=== PATIENT | female | born 1990 | race Caucasian/White ===

== ENCOUNTER 2017-01-10 20:14 | Emergency (ER) | payer SELFPAY ==
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
[2017-01-10] MEDS: KETOROLAC TROMETHAMINE 30 MG/1ML VIAL IM ONE (21:07)
[2017-01-10 21:14] VITALS: BP 112/74
== END 2017-01-10 21:12 | disposition home or self-care (01) ==
LOC: ED 20:14
DX: S29.012A Strain of muscle and tendon of back wall of thorax, initial encounter (principal); Y32.XXXA Crashing of motor vehicle, undetermined intent, initial encounter; Y93.9 Activity, unspecified; Y99.9 Unspecified external cause status
CPT/HCPCS: 99283; J1885

== ENCOUNTER 2017-04-02 18:05 | Emergency (ER) | payer SELFPAY ==
--- NOTE | 2017-04-02 18:20 | ED Physician Documentation ---
Nausea/Vomiting/Diarrhea - HISTORIAN Historian: patient - HPI Chief Complaint: Nausea,Vomiting,Diarrhea Additional Information: Patient states that she started to have some nausea and vomiting this AM. No blood noted. Has had some burning sensation in the abd. Has felt feverish, no chills noted. No other family members sick. Onset: hours (11:00ths am) Duration: waxing, waning Last known Well Code/Unknown Code: Unknown Timing: gradual onset, still present Context: denies: out of country travel, bad food Severity: moderate - Associated Symptoms Vomiting: mild (4 times today). denies: bloody, blood-streaked Diarrhea: other (none last BM this am and normal) Abdominal Pain: cramping - ROS CONST: fever, sweating - PAST HX Past History: other (gestation HTN) Surgeries/Procedures: other (I&D) Immunizations: referred to PCP. denies: influenza Allergies/Adverse Reactions: Allergies Allergy/AdvReac Type Severity Reaction Status Date / Time No Known Allergies Allergy Verified 04/02/17 18:20 Home Medications: Ambulatory Orders Medication Instructions Recorded Ondansetron HCl Rapdis [Zofran Odt] 4 mg PO Q6 PRN #10 tab 04/02/17 - SOCIAL HX Smoking History: non-smoker Alcohol Use: rarely Drug Use: none - FAMILY HX Family History: other (COPD, cancer) - VITAL SIGNS Vital Signs: Vital Signs Temp Pulse Resp BP Pulse Ox 98.7 F 76 16 122/72 98 04/02/17 18:05 04/02/17 18:05 04/02/17 18:05 04/02/17 18:05 04/02/17 18:05 - REVIEWED ASSESSMENTS Nursing Assessment Reviewed: Yes Vitals Reviewed: Yes ED Results Lab/Radiology - Lab Results Lab Results: Lab Results 04/02/17 04/02/17 18:49 18:49 WBC 9.60 K/ul K/ul (4.00-12.00) RBC 4.78 M/ul M/ul (3.90-5.20) Hgb 14.3 g/dL g/dL (12.0-16.0) Hct 41.9 % % (34.5-46.5) MCV 87.7 fl fl (80.0-100.0) MCH 29.9 pg pg (28.0-34.0) MCHC 34.0 g/dL g/dL (30.0-36.0) RDW 12.9 % % (11.3-14.3) Plt Count 331 K/mm3 K/mm3 (130-400) Neut % (Auto) 59.6 % % (39.0-79.0) Lymph % (Auto) 30.0 % % (16.0-50.0) [place] % (Auto) 4.3 % % (0.0-11.0) Eos % (Auto) 4.0 % % (0.0-6.8) Baso % (Auto) 0.7 (0.0-1.5) Neut # (Auto) 5.7 # k/uL # k/uL (1.4-7.7) Lymph # (Auto) 2.9 # k/uL # k/uL (0.6-4.0) [place] # (Auto) 0.4 # k/uL # k/uL (0.0-0.9) Eos # (Auto) 0.4 # k/uL # k/uL (0.0-0.6) Baso # (Auto) 0.1 # k/uL # k/uL (0.0-0.5) Reactive Lymphs % 1.4 % % (0.0-5.0) Reactive Lymphs # 0.1 # k/uL # k/uL (0.0-0.8) Sodium 138 mmol/L mmol/L (137-145) Potassium 3.6 mmol/L mmol/L (3.5-5.1) Chloride 102 mmol/L mmol/L (98-107) Carbon Dioxide 27 mmol/L mmol/L (22-30) BUN 12 mg/dL mg/dL (7-17) Creatinine 0.70 mg/dL mg/dL (0.52-1.04) Estimated Creat Clear 223 Est GFR ( Amer) > 60 (60 - ) Est GFR (Non-Af Amer) > 60 (60 - ) Glucose 78 mg/dL mg/dL (74-106) Calcium 8.6 mg/dL mg/dL (8.4-10.2) Total Bilirubin 0.3 mg/dL mg/dL (0.2-1.3) AST 18 U/L U/L (15-46) ALT 30 U/L U/L (13-69) Alkaline Phosphatase 53 U/L U/L (38-126) Total Protein 7.4 g/dL g/dL (6.3-8.2) Albumin 3.9 g/dL g/dL (3.5-5.0) - Orders Orders: ED Orders Category Date Time Status Place IV Lock 1T Care 04/02/17 18:27 Active CBC/PLATELET/DIFF Routine Lab 04/02/17 18:49 Completed CMP Routine Lab 04/02/17 18:49 Completed 0.9 % Sodium Chloride [Normal Saline] 500 ml Med 04/02/17 18:30 Ordered IV .Q1H 0.9 % Sodium Chloride [Normal Saline] 500 ml Med 04/02/17 18:37 Discontinued IV .STK-MED Ondansetron HCl/Pf [Zofran 4 mg/2 ml] Med 04/02/17 18:27 Discontinued 4 mg IVP NOW ONE Nausea Physical Exam - EXAM General Appearance: alert, mild distress EENT: eye inspection normal, ENT inspection normal, pharynx normal Neck: normal inspection, thyroid normal, supple. No: lymphadenopathy, stiff neck Respiratory: no resp distress, chest non-tender, breath sounds normal. No: wheezes, rales, rhonchi CVS: reg rate & rhythm, heart sounds normal, equal pulses, no murmur, no gallop Abdomen: tenderness (mild diffuse tenderness, no guarding or rebound tenderness) . No: guarding, rebound, mass Back: non-tender, painless ROM Skin: warm/dry, normal color Extremities: non-tender, normal range of motion, no edema Neuro/Psych: oriented X3, mood/affect nml, cognition normal Discharge Clincal Impression: Viral gastroenteritis Prescriptions: Ondansetron HCl Rapdis [Zofran Odt] 4 mg PO Q6 PRN #10 tab PRN Reason: Nausea / Vomiting Referrals: Primary Doctor,No [Primary Care Provider] - 2 Days Comments: Stay on clear liquids for the next 12-24 hours. Take Zofran as needed for nausea. Monitor your urinary output. If you still are having problems by Tuesday return to the ED or see your primary care provider. Return sooner if needed. Condition: Stable Disposition: 01 HOME, SELF-CARE Decision to Admit: NO Date of Decison to Admit: 04/02/17 Decision Time: 18:49
[2017-04-02] MEDS ORDERED: ONDANSETRON HCL/PF 4 MG/ 2ML VIAL IVP ONE (18:27)
[2017-04-02] MEDS ORDERED: 0.9 % SODIUM CHLORIDE 500 ML IV SCH (18:30)
[2017-04-02] MEDS ORDERED: 0.9 % SODIUM CHLORIDE 500 ML IV ONE (18:37)
[2017-04-02 18:54] LABS: BASOPHILS % 0.7 (0.0-1.5); MEAN CORPUSCULAR HEMOGLOBIN 29.9 pg (28.0-34.0); MEAN CORPUSCULAR VOLUME 87.7 fl (80.0-100.0); MONOCYTES % 4.3 % (0.0-11.0); NEUTROPHILS # 5.7 # k/uL (1.4-7.7)
[2017-04-02 19:08] LABS: eGFR (African) > 60; eGFR (Non-African) > 60
[2017-04-02 20:35] VITALS: BP 119/68
== END 2017-04-02 19:29 | disposition home or self-care (01) ==
LOC: ED 18:05
DX: A08.4 Viral intestinal infection, unspecified (principal)
CPT/HCPCS: 80053; 85025; J2405; J7030; J7060; 96361; 96374; 99283; S1016

== ENCOUNTER 2017-06-07 10:46 | Emergency (ER) | payer SELFPAY ==
--- NOTE | 2017-06-07 11:06 | ED Physician Documentation ---
Abdominal Pain - HISTORIAN Historian: patient - HPI Chief Complaint: Abdominal Pain Onset: hours (this AM) Duration: waxing, waning Timing: better Context: denies: out of country travel, bad food, recent trauma Severity: moderate Quality: sharp, stabbing Associated Symptoms: denies: fever, chills, nausea, vomiting Exacerbated by: movements. denies: cough, food, walking Relieved by: nothing - ROS CONST: no problems GI/: denies: constipation - SOCIAL HX Smoking History: non-smoker Alcohol Use: none Drug Use: none - FAMILY HX Family History: no significant history - PAST HX Past History: none Ischemic Bowel Risk Factors: none Other History: none Surgeries/Procedures: none Home Medications: Ambulatory Orders Medication Instructions Recorded NK [NK] 06/07/17 Allergies/Adverse Reactions: Allergies Allergy/AdvReac Type Severity Reaction Status Date / Time No Known Allergies Allergy Verified 06/07/17 11:20 - VITAL SIGNS Vital Signs: Vital Signs Temp Pulse Resp BP Pulse Ox 98.2 F 68 20 113/75 97 06/07/17 10:46 06/07/17 12:57 06/07/17 12:57 06/07/17 12:57 06/07/17 12:57 - REVIEWED ASSESSMENTS Nursing Assessment Reviewed: Yes Vitals Reviewed: Yes ED Results Lab/Radiology - Lab Results Lab Results: Lab Results 06/07/17 06/07/17 06/07/17 11:33 11:15 11:15 WBC RBC Hgb Hct MCV MCH MCHC RDW Plt Count Neut % (Auto) Lymph % (Auto) [place] % (Auto) Eos % (Auto) Baso % (Auto) Neut # (Auto) Lymph # (Auto) [place] # (Auto) Eos # (Auto) Baso # (Auto) Reactive Lymphs % Reactive Lymphs # Sodium 140 mmol/L mmol/L (136-145) Potassium 3.5 mmol/L mmol/L (3.5-5.1) Chloride 102 mmol/L mmol/L (98-107) Carbon Dioxide 29 mmol/L mmol/L (22-30) BUN 14 mg/dL mg/dL (7-17) Creatinine 0.60 mg/dL mg/dL (0.52-1.04) Estimated Creat Clear 262 Est GFR ( Amer) > 60 (60 - ) Est GFR (Non-Af Amer) > 60 (60 - ) Glucose 84 mg/dL mg/dL (74-106) Calcium 8.9 mg/dL mg/dL (8.4-10.2) Total Bilirubin 0.4 mg/dL mg/dL (0.2-1.3) AST 22 U/L U/L (15-46) ALT 35 U/L U/L (13-69) Alkaline Phosphatase 52 U/L U/L (38-126) Total Protein 7.0 g/dL g/dL (6.3-8.2) Albumin 3.7 g/dL g/dL (3.5-5.0) Lipase 160 U/L U/L (23-300) Urine Color Yellow (YELLOW) Urine Appearance Clear (CLEAR) Urine pH 6.5 (5.0 - 8.0) Ur Specific [place] 1.020 (1.010-1.030) Urine Protein Negative mg/dL mg/dL (NEGATIVE) Urine Ketones Negative mg/dL mg/dL (NEGATIVE) Urine Occult Blood Negative (NEGATIVE) Urine Nitrite Negative (NEGATIVE) Urine Bilirubin Negative (NEGATIVE) Urine Urobilinogen 1.0 Eu Eu (0.2-1.0) Ur Leukocyte Esterase Negative (NEGATIVE) Urine Glucose Negative mg/dL mg/dL (NEGATIVE) 06/07/17 11:15 WBC 7.20 K/ul K/ul (4.00-12.00) RBC 4.30 M/ul M/ul (3.90-5.20) Hgb 13.3 g/dL g/dL (12.0-16.0) Hct 37.8 % % (34.5-46.5) MCV 87.9 fl fl (80.0-100.0) MCH 31.0 pg pg (28.0-34.0) MCHC 35.3 g/dL g/dL (30.0-36.0) RDW 12.8 % % (11.3-14.3) Plt Count 363 K/mm3 K/mm3 (130-400) Neut % (Auto) 58.6 % % (39.0-79.0) Lymph % (Auto) 31.2 % % (16.0-50.0) [place] % (Auto) 4.6 % % (0.0-11.0) Eos % (Auto) 3.5 % % (0.0-6.8) Baso % (Auto) 0.7 (0.0-1.5) Neut # (Auto) 4.2 # k/uL # k/uL (1.4-7.7) Lymph # (Auto) 2.2 # k/uL # k/uL (0.6-4.0) [place] # (Auto) 0.3 # k/uL # k/uL (0.0-0.9) Eos # (Auto) 0.2 # k/uL # k/uL (0.0-0.6) Baso # (Auto) 0.0 # k/uL # k/uL (0.0-0.5) Reactive Lymphs % 1.3 % % (0.0-5.0) Reactive Lymphs # 0.1 # k/uL # k/uL (0.0-0.8) Sodium Potassium Chloride Carbon Dioxide BUN Creatinine Estimated Creat Clear Est GFR ( Amer) Est GFR (Non-Af Amer) Glucose Calcium Total Bilirubin AST ALT Alkaline Phosphatase Total Protein Albumin Lipase Urine Color Urine Appearance Urine pH Ur Specific [place] Urine Protein Urine Ketones Urine Occult Blood Urine Nitrite Urine Bilirubin Urine Urobilinogen Ur Leukocyte Esterase Urine Glucose - Radiology Radiology Impressions: Examination: Obstruction series History: Abdominal discomfort Findings: 4 views obtained of the chest and abdomen. Single view the chest demonstrates normal cardiac silhouette. No focal infiltrate. No blunting of the costophrenic margins. No abnormal dilation of the large or small bowel. Air and stool throughout the large bowel. No suspicious calcification projecting over the renal fossa or the lower pelvic region. Osseous structures are appropriate for age. IUD in place. Impression: No acute cardiopulmonary process. No obstruction. No suspicious calcifications by plain film sensitivity. - Orders Orders: ED Orders Category Date Time Status ABD SERIES PA CHEST [RAD] Stat Exams 06/07/17 Completed CBC/PLATELET/DIFF Routine Lab 06/07/17 11:15 Completed CMP Routine Lab 06/07/17 11:15 Completed LIPASE Urgent Lab 06/07/17 11:15 Completed UA MACRO DIP ONLY Routine Lab 06/07/17 11:33 Completed Lidocaine 2%Visc 15ml [Xylocaine] Med 06/07/17 11:24 Discontinued 600 mg .ROUTE .STK-MED ONE Mag Hydrox/Al Hydrox/Simeth [Mylanta] Med 06/07/17 11:24 Discontinued 30 ml PO .STK-MED ONE Mag Hydrox/Al Hydrox/Simeth [Mylanta] 30 ml Med 06/07/17 11:16 Discontinued Lidocaine 2%Visc 15ml [Xylocaine] 20 mg PHENobarb/HYOSCY/ATROPINE/SCOP [] 10 ml PO NOW Abdominal Pain Physical Exam - Physical Exam General Appearance: alert, mild distress EENT: eye inspection normal, ENT inspection normal, pharynx normal, no signs of dehydration NECK: normal inspection, supple. No: lymphadenopathy, stiff neck RESPIRATORY: no resp distress, chest non-tender, breath sounds normal. No: wheezes, rales, rhonchi CVS: reg rate & rhythm, heart sounds normal, equal pulses, no murmur, no gallop ABDOMEN: soft, no organomegaly, normal bowel sounds, no abdominal bruit, no distension, non-tender, tenderness (diffuse tenderness) BACK: normal inspection, no CVA tenderness SKIN: warm/dry, normal color EXTREMITIES: non-tender, normal range of motion NEURO: oriented X3, CN's nml as tested, cognition normal Vital Signs: Vital Signs Temp Pulse Resp BP Pulse Ox 98.2 F 68 20 113/75 97 06/07/17 10:46 06/07/17 12:57 06/07/17 12:57 06/07/17 12:57 06/07/17 12:57 Discharge Clincal Impression: Abdominal pain Qualifiers: Abdominal location: generalized Qualified Code(s): R10.84 - Generalized abdominal pain Referrals: Primary Doctor,No [Primary Care Provider] - 2 Days Additional Instructions: Home and rest. Drink clear liquids for the next 12 hours. If you continue to have some pain to follow-up with your primary care provider or return to the ED. Condition: Stable Disposition: HOME, SELF-CARE Decision to Admit: NO Date of Decison to Admit: 06/07/17 Decision Time: 12:41
[2017-06-07] MEDS ORDERED: MAG HYDROX/AL HYDROX/SIMETH 30 ML, Lidocaine 2%Visc 15ml 20 MG, PHENobarb/HYOSCY/ATROPI... PO ONE ×3 (11:16)
[2017-06-07] MEDS ORDERED: MAG HYDROX/AL HYDROX/SIMETH 30 ML UDC PO ONE (11:24)
[2017-06-07] MEDS ORDERED: Lidocaine 2%Visc 15ml 20 MG/ML UDC ONE (11:24)
[2017-06-07 11:27] LABS: BASOPHILS % 0.7 (0.0-1.5); EOSINOPHILS % 3.5 % (0.0-6.8); MEAN CORPUSCULAR VOLUME 87.9 fl (80.0-100.0); MONOCYTES % 4.6 % (0.0-11.0); NEUTROPHILS # 4.2 # k/uL (1.4-7.7)
[2017-06-07 11:39] LABS: eGFR (African) > 60; eGFR (Non-African) > 60
--- NOTE | 2017-06-07 12:56 | Diagnostic Imaging Report ---
LEVY EASTMAN [facility] [address] [facility] [address] [address] Report Submission Date: Jun 07, 2017 12:14:11 PM FINANCIAL ENGINEER Patient Study Name: CARI GRAY Date: Jun 07, 2017 11:52:54 AM FINANCIAL ENGINEER Modality Type: CR Gender: F Description: ABDOMEN : 86 Institution: [facility] Physician: LEVY EASTMAN Examination: Obstruction series History: Abdominal discomfort Findings: 4 views obtained of the chest and abdomen. Single view the chest demonstrates normal cardiac silhouette. No focal infiltrate. No blunting of the costophrenic margins. No abnormal dilation of the large or small bowel. Air and stool throughout the large bowel. No suspicious calcification projecting over the renal fossa or the lower pelvic region. Osseous structures are appropriate for age. IUD in place. Impression: No acute cardiopulmonary process. No obstruction. No suspicious calcifications by plain film sensitivity. Electronically signed on Jun 07, 2017 12:14:11 PM FINANCIAL ENGINEER by: Bennett NAVARRO
[2017-06-07 12:59] VITALS: BP 113/75
[2017-06-07 16:17] LABS: APPEARANCE,URINE CLEAR (CLEAR); COLOR,URINE YELLOW (YELLOW); OCCULT BLOOD,URINE NEGATIVE (NEGATIVE); PH URINE 6.5 (5.0 - 8.0)
[2017-06-07] MEDS ORDERED: fentaNYL CITRATE/PF 100 MCG/ 2ML AMP IVP ONE (17:34)
== END 2017-06-07 12:57 | disposition home or self-care (01) ==
LOC: ED 10:46
DX: R10.84 Generalized abdominal pain (principal)
CPT/HCPCS: 74022; 80053; 81002; 83690; 85025; A9270; 99283; S1016

== ENCOUNTER 2017-08-24 13:00 | Emergency (ER) | payer SELFPAY ==
[2017-08-24 13:14] VITALS: BP 137/86
[2017-08-24 13:31] LABS: BASOPHILS % 0.5 (0.0-1.5); MEAN CORPUSCULAR HEMOGLOBIN 30.6 pg (28.0-34.0); MEAN CORPUSCULAR VOLUME 88.6 fl (80.0-100.0); MONOCYTES % 3.1 % (0.0-11.0); NEUTROPHILS # 6.1 # k/uL (1.4-7.7)
--- NOTE | 2017-08-24 13:41 | ED Physician Documentation ---
General Adult - HISTORIAN Historian: patient - HPI Stated Complaint: Low blood sugar Chief Complaint: General Adult Further Comments: yes (26 year old female patient presents with complaint of low blood sugar, states she took her blood sugar [employer] and was 61. On arrival to Er blood sugar 92. Patient complains of fatigue and dizziness. Denies polyuria , polydipsea, weight loss, or blurry vision. Left work last night for "low blood sugar, fatigue and dizziness". LMP - mirena) - ROS CONST: no problems. denies: fever, sweating, recent illness, weakness, weight loss, chills EYES/ENT: none CVS/RESP: none GI/: none MS/SKIN/LYMPH: none NEURO/PSYCH: dizziness - PAST HX Past History: none Other History: none Immunizations: UTD Allergies/Adverse Reactions: Allergies Allergy/AdvReac Type Severity Reaction Status Date / Time No Known Allergies Allergy Verified 08/24/17 13:16 Home Medications: Ambulatory Orders Medication Instructions Recorded NK [NK] 06/07/17 - SOCIAL HX Smoking History: cigarettes - FAMILY HX Family History: No - VITAL SIGNS Vital Signs: Vital Signs Temp Pulse Resp BP Pulse Ox 96.1 F L 72 17 137/86 99 08/24/17 13:05 08/24/17 13:05 08/24/17 13:05 08/24/17 13:05 08/24/17 13:05 - REVIEWED ASSESSMENTS Nursing Assessment Reviewed: Yes Vitals Reviewed: Yes ED Results Lab/Radiology - Lab Results Lab Results: Lab Results 08/24/17 13:25 WBC 8.80 K/ul K/ul (4.00-12.00) RBC 4.62 M/ul M/ul (3.90-5.20) Hgb 14.1 g/dL g/dL (12.0-16.0) Hct 40.9 % % (34.5-46.5) MCV 88.6 fl fl (80.0-100.0) MCH 30.6 pg pg (28.0-34.0) MCHC 34.5 g/dL g/dL (30.0-36.0) RDW 12.6 % % (11.3-14.3) Plt Count 361 K/mm3 K/mm3 (130-400) Neut % (Auto) 69.4 % % (39.0-79.0) Lymph % (Auto) 23.5 % % (16.0-50.0) [place] % (Auto) 3.1 % % (0.0-11.0) Eos % (Auto) 2.0 % % (0.0-6.8) Baso % (Auto) 0.5 (0.0-1.5) Neut # (Auto) 6.1 # k/uL # k/uL (1.4-7.7) Lymph # (Auto) 2.1 # k/uL # k/uL (0.6-4.0) [place] # (Auto) 0.3 # k/uL # k/uL (0.0-0.9) Eos # (Auto) 0.2 # k/uL # k/uL (0.0-0.6) Baso # (Auto) 0.0 # k/uL # k/uL (0.0-0.5) Reactive Lymphs % 1.4 % % (0.0-5.0) Reactive Lymphs # 0.1 # k/uL # k/uL (0.0-0.8) - Orders Orders: ED Orders Category Date Time Status CBC/PLATELET/DIFF Stat Lab 08/24/17 13:23 Ordered CMP Stat Lab 08/24/17 13:23 Ordered INFLUENZA A&B Stat Lab 08/24/17 13:23 Uncollected General Adult Physical Exam - PHYSICAL EXAM GENERAL APPEARANCE: [id number] N EENT: eye inspection normal, ENT inspection normal, pharynx normal, no signs of dehydration, KAYE, no nystagmus, TM's nml RESPIRATORY: no resp distress, chest non-tender, breath sounds normal CVS: reg rate & rhythm, heart sounds normal, equal pulses, no murmur, no gallop , PMI nml, no JVD, no friction rub, 24 ABDOMEN: soft, no organomegaly, normal bowel sounds, no abdominal bruit, no distension SKIN: normal color, warm/dry, NR, INT, PAL, DR EXTREMITIES: non-tender, normal range of motion, no evidence of injury, no edema , J, [employer] DIRECTOR NEURO: oriented X3, CN's nml as tested, motor nml, sensation nml, mood/affect nml Discharge Clincal Impression: Fatigue Qualifiers: Fatigue type: unspecified Qualified Code(s): R53.83 - Other fatigue Referrals: Primary Doctor,No [Primary Care Provider] - 2 Days Condition: Stable Disposition: 01 HOME, SELF-CARE Decision to Admit: NO Decision Time: 14:00
[2017-08-24 13:44] LABS: eGFR (African) > 60; eGFR (Non-African) > 60
== END 2017-08-24 14:15 | disposition home or self-care (01) ==
LOC: ED 13:00
DX: R53.83 Other fatigue (principal)
CPT/HCPCS: 80053; 85025; 87400; 99282

== ENCOUNTER 2017-11-07 20:14 | Emergency (ER) | payer SELFPAY ==
[2017-11-07] MEDS ORDERED: SULFAMETHOXAZOLE/TRIMETHOPRIM 1 EACH TABLET PO ONE (20:46)
--- NOTE | 2017-11-07 20:51 | ED Physician Documentation ---
General Adult - HISTORIAN Historian: patient - HPI Stated Complaint: Lump in L armpit Chief Complaint: General Adult Additional Information: Noticed painful lump in left axilla today. No treatment attempted, No fever or other associated signs. - ROS CONST: no problems - PAST HX Past History: none Allergies/Adverse Reactions: Allergies Allergy/AdvReac Type Severity Reaction Status Date / Time No Known Allergies Allergy Verified 11/07/17 20:39 Home Medications: Ambulatory Orders Medication Instructions Recorded NK [NK] 06/07/17 - SOCIAL HX Smoking History: non-smoker - FAMILY HX Family History: No - VITAL SIGNS Vital Signs: Vital Signs Temp Pulse Resp BP Pulse Ox 98.2 F 78 18 125/78 98 11/07/17 20:40 11/07/17 20:40 11/07/17 20:40 11/07/17 20:40 11/07/17 20:40 - REVIEWED ASSESSMENTS Nursing Assessment Reviewed: Yes Vitals Reviewed: Yes ED Results Lab/Radiology - Orders Orders: ED Orders Category Date Time Status Sulfamethoxazole/Trimethoprim [Bactrim Ds] Med 11/07/17 20:46 Once 2 each PO NOW ONE General Adult Physical Exam - PHYSICAL EXAM GENERAL APPEARANCE: no distress EENT: eye inspection normal, ENT inspection normal NECK: normal inspection RESPIRATORY: no resp distress BACK: normal inspection (pain free movements) SKIN: warm/dry, normal color, other (1+ cm tender nodule mid left axilla. No erythema or fluctuance. No epitrochlear node. ) EXTREMITIES: non-tender, normal range of motion (gait and stance) NEURO: CN's nml as tested, motor nml, sensation nml, cognition normal Discharge Clincal Impression: Cutaneous abscess of axilla Qualifiers: Laterality: left Qualified Code(s): L02.412 - Cutaneous abscess of left axilla Referrals: Primary Doctor,No [Primary Care Provider] - 2 Days Condition: Good Disposition: 01 HOME, SELF-CARE Decision to Admit: NO Decision Time: 20:50
[2017-11-07 21:00] VITALS: BP 125/78
== END 2017-11-07 20:56 | disposition home or self-care (01) ==
LOC: ED 20:14
DX: L02.412 Cutaneous abscess of left axilla (principal)
CPT/HCPCS: 99283; A9270

== ENCOUNTER 2018-01-02 18:55 | Emergency (ER) | payer SELFPAY ==
--- NOTE | 2018-01-02 18:57 | ED Physician Documentation ---
General Adult - HISTORIAN Historian: patient - HPI Stated Complaint: bite on right lower leg Chief Complaint: Skin Rash Onset: days ago (2) Timing: still present Severity: mild Further Comments: yes (She states she noticed what she thought was a bug bite but not a tick two days ago this am she notes the area "was so firm she could barely walk" No fever. No other skin concerns. She did not try any OTC meds.) Last known Well Code/Unknown Code: Unknown - ROS CONST: no problems MS/SKIN/LYMPH: rash NEURO/PSYCH: denies: headache, fainting - PAST HX Past History: none Surgeries/Procedures: none Immunizations: UTD Allergies/Adverse Reactions: Allergies Allergy/AdvReac Type Severity Reaction Status Date / Time No Known Allergies Allergy Verified 01/02/18 19:08 Home Medications: Ambulatory Orders Medication Instructions Recorded NK [NK] 06/07/17 - SOCIAL HX Smoking History: cigarettes Alcohol Use: none Drug Use: none - FAMILY HX Family History: No - VITAL SIGNS Vital Signs: Vital Signs Temp Pulse Resp BP Pulse Ox 125/78 11/07/17 20:57 - REVIEWED ASSESSMENTS Nursing Assessment Reviewed: Yes Vitals Reviewed: Yes General Adult Physical Exam - PHYSICAL EXAM GENERAL APPEARANCE: no distress EENT: ENT inspection normal NECK: normal inspection RESPIRATORY: no resp distress, chest non-tender, breath sounds normal CVS: reg rate & rhythm, heart sounds normal, equal pulses, no murmur ABDOMEN: soft BACK: normal inspection SKIN: other (2 cm red area warm to touch red and raised right lower leg - FROM, Pulses + Sensation + No drainge noted ) EXTREMITIES: non-tender, normal range of motion, no evidence of injury, no edema NEURO: oriented X3, depressed mood/affect Discharge Clincal Impression: Cellulitis of leg Qualifiers: Laterality: left Qualified Code(s): L03.116 - Cellulitis of left lower limb Referrals: Primary Doctor,No [Primary Care Provider] - 2 Days Additional Instructions: 1. Bactrim DS take 1 by mouth twice per day x 10 days 2. Keep area clean and dry 3. Watch for signs of increasing redness after 2 days on antibiotics or severe changes 4. Tylenol or Ibuprofen as needed for pain 5. See PCP in 2-4 days if no improvement 6. Return to ER for added concerns Condition: Stable Disposition: 01 HOME, SELF-CARE Decision to Admit: NO Date of Decison to Admit: 01/02/18 Decision Time: 19:07
[2018-01-02 19:14] VITALS: BP 136/89
== END 2018-01-02 19:24 | disposition home or self-care (01) ==
LOC: ED 18:55
DX: L03.116 Cellulitis of left lower limb (principal)
CPT/HCPCS: 99282